=== PATIENT | male | born 1975 | race Caucasian/White ===

== ENCOUNTER 2016-07-02 11:38 | Outpatient (CLI) | payer MEDICARE | END 2016-07-02 11:39 | disposition home or self-care (01) | DX: G47.30 Sleep apnea, unspecified (principal); G47.8 Other sleep disorders; G47.10 Hypersomnia, unspecified; R06.83 Snoring | CPT/HCPCS: 99203; G0463 ==

== ENCOUNTER 2016-08-07 14:59 | Outpatient (CLI) | payer MEDICARE | END 2016-08-07 15:00 | disposition home or self-care (01) | DX: G47.33 Obstructive sleep apnea (adult) (pediatric) (principal) | CPT/HCPCS: 99214; G0463 ==

== ENCOUNTER 2016-09-25 11:23 | Outpatient (CLI) | payer MEDICARE | END 2016-09-25 11:24 | disposition home or self-care (01) | LOC: SC 11:23 | PROVIDERS: ATTEND Specialist | DX: G47.33 Obstructive sleep apnea (adult) (pediatric) (principal); G47.00 Insomnia, unspecified | CPT/HCPCS: 99213; G0463; 99212 ==

== ENCOUNTER 2016-10-30 13:59 | Outpatient (CLI) | payer MEDICARE | END 2016-10-30 14:00 | disposition home or self-care (01) | LOC: SC 13:59 | PROVIDERS: ATTEND Specialist | DX: G47.33 Obstructive sleep apnea (adult) (pediatric) (principal) | CPT/HCPCS: 99213; G0463; 99212 ==

== ENCOUNTER 2023-06-04 15:43 | Outpatient (CLI) | payer MEDICARE ==
--- NOTE | 2023-06-05 11:55 | CT Report ---
PROCEDURE: CT paranasal sinus INDICATIONS: SINUSITIS TECHNIQUE: Helical axial CT of the paranasal sinuses was obtained without contrast and reformatted in multiple planes. Radiation dose reduction was achieved using automated exposure control and adjustme nt of mA and/or kV according to patient size. COMPARISON: None FINDINGS: Maxillary Sinuses: Right maxillary sinus is completely opacified, and the medial wall is remodeling b owed into the nasal cavity. Ostiomeatal unit is completely obstructed. There is thickening of the ma xillary sinus osseous ewing. Mucosal thickening noted involving the floor the left maxillary sinus as well measuring up to 1 cm in the right ostiomeatal unit is patent. Ethmoid Air Cells: Opacification the right anterior ethmoid air cells Sphenoid Sinuses: No bony remodeling or destruction. Sinuses are clear. Frontal Sinuses: No bony remodeling or destruction. Sinuses are clear. Nasal Vault: Large cartilaginous nasal septal defect. Osseous vomer is intact. IMPRESSION: Chronic right maxillary sinusitis or polyp disease with remodeling of the medial wall and reactive th ickening of the remainder the osseous ewing Large cartilaginous nasal septal defect Reviewed by: Harley Lal MD on 06/05/2023 10:54 AM [facility] Approved by: Harley Lal MD on 06/05/2023 10:54 AM [facility] Station ID: [id number]
== END 2023-06-04 15:44 | disposition home or self-care (01) ==
LOC: DI 15:43
PROVIDERS: ATTEND Internal Medicine
DX: J32.9 Chronic sinusitis, unspecified (principal); D84.9 Immunodeficiency, unspecified; R93.49 Abnormal radiologic findings on diagnostic imaging of other urinary organs

== ENCOUNTER 2024-01-17 11:08 | Emergency (ER) | payer MEDICARE ==
[2024-01-17 11:22] VITALS: O2SAT 100
[2024-01-17 11:36] LABS: BASOPHILS # (AUTO) 0.1 10^3/uL (0.0-0.1); BASOPHILS % (AUTO) 0.5 %; EOSINOPHILS # (AUTO) 0.2 10^3/uL (0.0-0.7); EOSINOPHILS % (AUTO) 1.5 %; HCT - HEMATOCRIT 44.2 % (42.0-52.0); HGB - HEMOGLOBIN 15.8 g/dL (14.0-18.0); LYMPHOCYTES # (AUTO) 2.5 10^3/uL (1.5-3.5); LYMPHOCYTES % (AUTO) 22.4 %; MEAN CORPUSCULAR HEMOGLOBIN 29.7 pg (27.0-31.0); MEAN CORPUSCULAR HGB CONC 35.7 g/dL (32.0-36.0); MEAN CORPUSCULAR VOLUME 83.1 fL (80.0-94.0); MEAN PLATELET VOLUME 10.3 fL (7.4-11.4); MONOCYTES # (AUTO) 0.8 10^3/uL (0.0-1.0); MONOCYTES % (AUTO) 7.5 %; NEUTROPHILS # (AUTO) 7.4 10^3/uL (1.5-6.6); NEUTROPHILS % (AUTO) 67.6 %; PLT - PLATELET COUNT 285 10^3/uL (130-450); RED BLOOD COUNT 5.32 10^6/uL (4.70-6.10); RED CELL DISTRIBUTION WIDTH 11.8 % (12.0-15.0)
[2024-01-17 11:50] LABS: ALBUMIN/GLOBULIN RATIO 1.3 (1.0-2.2); BILIRUBIN,TOTAL 0.6 mg/dL (0.2-1.0); CALCIUM 9.5 mg/dL (8.5-10.3); CREATININE 0.9 mg/dL (0.6-1.3); POTASSIUM 4.3 mmol/L (3.5-4.5); TOTAL PROTEIN 7.2 g/dL (6.4-8.9)
--- NOTE | 2024-01-17 11:59 | ED Physician Documentation ---
PD HPI ABD PAIN - Stated complaint Stated Complaint: HIGH BLOOD GLUCOSE,ABD PX,TIGHT CHEST - Chief complaint Chief Complaint: Abd Pain - Additional information Additional information: 48-year-old male with history of type 2 diabetes poorly controlled takes glipizide 5 times a day no insulin but is trying to get on insulin. Also has a history of psoriatic arthritis and spinal fusion and says that he has a hard time ambulating because of this he is able to ambulate but for the most part is on disability and does not get around to move much. Patient reports about 1 week ago he started having generalized upper abdominal pain. He also reports that lately his blood sugars been higher than normal his blood sugar today was in the 400s he has not any steroids. Mild nausea no vomiting no fevers or chills regular bowel movements no hematemesis no dark black bowel movements. Only abdominal surgical history that he has is a " triple hernia repair" As a 6-year-old PD PAST MEDICAL HISTORY - Past Medical History Neuro: None Endocrine/Autoimmune: Type 2 diabetes GI: None : None Psych: None Musculoskeletal: Other Derm: None - Past Surgical History Past Surgical History: Yes Cardiovascular: Coronary stent - Present Medications Home Medications: Ambulatory Orders Medication Instructions Recorded Confirmed Aspirin [Aspirin EC] 81 mg PO DAILY 01/17/23 01/17/24 Clopidogrel [Plavix] 32.5 mg PO DAILY 01/17/23 01/17/24 Dextroamphetamine/Amphetamine 5 mg PO TID 01/17/23 01/17/24 [Adderall Xr 5 mg Capsule] Ezetimibe/Rosuvastatin Calcium 40 mg PO DAILY 01/17/23 01/17/24 [Rosuvastatin-Ezetimibe 40-10Mg] Glipizide [Glipizide ER] 5 mg PO TID 01/17/23 01/17/24 Nystatin/Triamcinolone Acet 15 gm TOP DAILY PRN 01/17/23 01/17/24 [Nystatin-Triamcinolone Ointm] Oxycodone HCl/Acetaminophen 3 tab PO Q4H PRN 01/17/23 01/17/24 [Percocet 10-325 mg Tablet] carvediloL [Coreg] 6.25 mg PO BID 01/17/23 01/17/24 Esomeprazole Magnesium [Nexium 20 mg PO DAILY PRN 01/17/24 01/17/24 24Hr] inFLIXimab [Remicade] See Rx Instructions .ROUTE .COMPLEX 01/17/24 01/17/24 - Allergies Allergies/Adverse Reactions: Allergies Allergy/AdvReac Type Severity Reaction Status Date / Time atorvastatin Allergy Hives Verified 01/17/24 11:15 Penicillins Allergy Hives Verified 01/17/24 11:15 - Social History Does the pt smoke?: Yes Smoking Status: Current every day smoker Does the pt drink ETOH?: No Does the pt have substance abuse?: No - Immunizations Immunizations are current?: No PD ED PE NORMAL - Vitals Vital signs reviewed: Yes - General General: Alert and oriented X 3, No acute distress, Other (morbid obesity) - HEENT HEENT: Atraumatic - Cardiac Cardiac: RRR - Respiratory Respiratory: Other (diminished breath sounds) - Abdomen Abdomen: Normal bowel sounds, Soft, Non distended, No organomegaly, Other (RUQ tenderness, mid-epigastric tenderness) - Back Back: No CVA TTP - Derm Derm: Normal color, Warm and dry, No rash PD ED PE EXPANDED - Psych Psych: Depressed, Poor eye contact, Anxious, Agitated. No: Suicidal Results - Vitals Vitals: Vital Signs - 24 hr 01/17/24 01/17/24 11:15 13:07 Temperature 36.7 C Heart Rate 95 98 Respiratory 22 Rate Blood Pressure 175/113 H 136/74 H O2 Saturation 100 100 Oxygen O2 Source Room air - EKG (time done) 1131 EKG releavant findings:: EKG personally interpreted by author of this note. Relevant findings are: Rate: Rate (enter#) (89) Rhythm: NSR [place]: Normal Intervals: Normal ID QRS: Normal Ischemia: ST elevation c/w repol Compare to prior EKG: Unchanged from prior EKG Computer interpretation: Agree with computer - Labs Labs: Laboratory Tests 01/17/24 01/17/24 01/17/24 11:31 11:31 11:31 WBC 11.0 H RBC 5.32 Hgb 15.8 Hct 44.2 MCV 83.1 MCH 29.7 MCHC 35.7 RDW 11.8 L Plt Count 285 MPV 10.3 Neut # (Auto) 7.4 H Lymph # (Auto) 2.5 [place] # (Auto) 0.8 Eos # (Auto) 0.2 Baso # (Auto) 0.1 Absolute Nucleated RBC 0.00 Nucleated RBC % 0.0 Sodium 127 L Potassium 4.3 Chloride 95 L Carbon Dioxide 18 L Anion Gap 14.0 H BUN 32 H Creatinine 0.9 Estimated GFR (MDRD) 90 Glucose 398 H Calcium 9.5 Total Bilirubin 0.6 AST 16 ALT 25 Alkaline Phosphatase 154 H Total Protein 7.2 Albumin 4.0 Globulin 3.2 Albumin/Globulin Ratio 1.3 Lipase 283 H Urine Color Urine Clarity Urine pH Ur Specific [place] Urine Protein Urine Glucose (UA) Urine Ketones Urine Occult Blood Urine Nitrite Urine Bilirubin Urine Urobilinogen Ur Leukocyte Esterase Urine RBC Urine WBC Ur Squamous Epith Cells Urine Bacteria Urine Casts Urine Mucus Ur Microscopic Review Urine Culture Comments Ethyl Alcohol < 10.0 01/17/24 12:32 WBC RBC Hgb Hct MCV MCH MCHC RDW Plt Count MPV Neut # (Auto) Lymph # (Auto) [place] # (Auto) Eos # (Auto) Baso # (Auto) Absolute Nucleated RBC Nucleated RBC % Sodium Potassium Chloride Carbon Dioxide Anion Gap BUN Creatinine Estimated GFR (MDRD) Glucose Calcium Total Bilirubin AST ALT Alkaline Phosphatase Total Protein Albumin Globulin Albumin/Globulin Ratio Lipase Urine Color YELLOW Urine Clarity CLEAR Urine pH 5.5 Ur Specific [place] 1.025 Urine Protein 30 H Urine Glucose (UA) >=1000 H Urine Ketones 40 H Urine Occult Blood SMALL H Urine Nitrite NEGATIVE Urine Bilirubin NEGATIVE Urine Urobilinogen 0.2 (NORMAL) Ur Leukocyte Esterase NEGATIVE Urine RBC 0-5 Urine WBC 0-3 Ur Squamous Epith Cells NONE SEEN Urine Bacteria None Seen Urine Casts 0-2 Fine Granular Urine Mucus Few Strands Ur Microscopic Review INDICATED Urine Culture Comments NOT INDICATED Ethyl Alcohol PD Medical Decision Making - ED course ED course: 48-year-old male presents emergency department for midepigastric, right upper quadrant pain and tenderness. Patient also was concerned about hyperglycemia and said that he is unable to get with his primary care provider for quite some time. His blood sugar at home was 440 and he took 2 glipizide prior to coming to the emergency department. Labs show minimally elevated white count of 11.0 he appears to have pseudo hyponatremia. Corrected sodium 132 BUN elevated at 32 GFR 90, lipase also elevated at 283. Urinalysis is unremarkable aside from ketones and greater than 1000 glucose. Negative alcohol level. Patient was quite agitated and irritable that he was unable to eat he started eating cheese its when I informed him that we do not want him to eat or drink anything until we get the CT results back he became very agitated and angry. He says that he does not eat he starts to have nausea with vomiting. I informed him that I be more than happy to get his antihypertensive medication as well as some antinausea medications that with the symptoms patient become more more irritated as he was waiting in the ER and said that he did not want to be here anymore If he was not allowed to eat. Patient decided to leave AGAINST MEDICAL ADVICE Because he wanted to eat. Discussion of the suspected diagnosis Including but not limited to fatty liver vs Cholelithiasis, vs cholangitis, vs atypical appendicitis was had with the patient. Also the risks of leaving AGAINST MEDICAL ADVICE which include but are not limited to , sepsis, Chronic disability were discussed with the patien t. He is of sound mind and with his who alelias appears to be of sound mind and still wants to leave AGAINST MEDICAL ADVICE. Patient understands they are welcome to return any time if they change their mind. Departure - Departure Disposition: 07 Against Medical Advice Clinical Impression: BMI 50.0-59.9, adult, Morbidly obese, Hyperglycemia, Poorly controlled type 2 diabetes mellitus, Elevated lipase Abdominal pain Qualifiers: Abdominal location: epigastric Qualified Code(s): R10.13 - Epigastric pain Instructions: Abdominal Pain, Obesity Doctor Comments: You are choosing to leave AGAINST MEDICAL ADVICE despite knowing that your lipase is elevated and you continue to have right upper quadrant pain which could be due to cholangitis also known as infected gallbladder. You have stated that you have antibiotics at home but I cannot stress this enough these are not for an infected gallbladder. If you change your mind and would like to present back to the emergency department for further emergency workup we are open 10/12. Choosing to leave AGAINST MEDICAL ADVICE could result in or chronic disability. Forms: PCP List Discharge Date/Time: 01/17/24 13:49
[2024-01-17] MEDS: ONDANSETRON 4 MG/2 ML VIAL IVP STA ×2 (12:24→13:27)
[2024-01-17] MEDS: SODIUM CHLORIDE 0.9% 1,000 ML IV ONE (12:24)
[2024-01-17] MEDS: GI COCKTAIL 120 ML BOTTLE PO STA (12:25)
[2024-01-17 12:47] LABS: BILIRUBIN,URINE NEGATIVE (NEGATIVE); GLUCOSE, URINE (UA) >=1000 mg/dL (NEGATIVE); KETONES,URINE (UA) 40 mg/dL (NEGATIVE); LEUKOCYTE ESTERASE, URINE NEGATIVE (NEGATIVE); NITRITE,URINE NEGATIVE (NEGATIVE); OCCULT BLOOD,URINE SMALL (NEGATIVE); PH,URINE 5.5 PH (5.0-7.5); PROTEIN,URINE 30 mg/dL (NEGATIVE); UROBILINOGEN,URINE 0.2 (NORMAL) E.U./dL (NORMAL)
[2024-01-17 12:56] LABS: CLARITY,URINE CLEAR (CLEAR)
[2024-01-17 12:57] LABS: BACTERIA,URINE None Seen /HPF (None Seen); CASTS, URINE 0-2 Fine Granular /LPF; MUCUS,URINE Few Strands; RBC,URINE 0-5 /HPF (0-5); SQUAMOUS EPITHELIAL CELL,UR NONE SEEN (<= Few); WBC,URINE 0-3 /HPF (0-3)
[2024-01-17] MEDS: NICOTINE 21 MG PATCH TOP STA (13:27)
[2024-01-17] MEDS: PANTOPRAZOLE 40 MG VIAL IVP STA (13:28)
[2024-01-17 13:29] VITALS: BP 136/74
[2024-01-17] MEDS ORDERED: iohexoL-300 100 ML VIAL ONE (13:35)
== END 2024-01-17 13:49 | disposition left against medical advice (07) ==
LOC: ED 11:08
DX: R10.13 Epigastric pain (principal); E11.65 Type 2 diabetes mellitus with hyperglycemia; E66.01 Morbid (severe) obesity due to excess calories; Z68.43 Body mass index [BMI] 50.0-59.9, adult; R74.8 Abnormal levels of other serum enzymes; F17.200 Nicotine dependence, unspecified, uncomplicated; Z53.29 Procedure and treatment not carried out because of patient's decision for other reasons; Z79.84 Long term (current) use of oral hypoglycemic drugs
CPT/HCPCS: 36415; 80053; 81001; 83690; 85025; 93005; 96374; 99283; 99284; A9270; G0480; 81003; 82077; 87086